=== PATIENT | male | born 1960 | race Caucasian/White ===

== ENCOUNTER 2016-12-14 01:14 | Emergency (ER) | payer OTHER ==
[2016-12-14 04:15] VITALS: BP 126/74
== END 2016-12-14 04:44 | disposition home or self-care (01) ==
LOC: ER 01:14
DX: L50.9 Urticaria, unspecified (principal); T78.40XA Allergy, unspecified, initial encounter; X58.XXXA Exposure to other specified factors, initial encounter; Z90.49 Acquired absence of other specified parts of digestive tract
CPT/HCPCS: 99282; Z7610